=== PATIENT | female | born 1965 | race African-American/Black ===

== ENCOUNTER 2019-07-27 16:24 | Emergency (ER) | payer OTHER ==
[2019-07-27 17:13] VITALS: BMI 24.5
--- NOTE | 2019-07-27 17:13 | PDOC ---
Rapid Medical Evaluation Time Seen by Provider: 07/27/19 17:10 Medical Evaluation: 07/27/19 17:10 CC: "I was about to pass out."; Now with DRISCOLL and "my heart is beating fast." Pt refused evaluation until after using toilet. PE: No focal findings Orders: ekg, labs, urine Patient will proceed to ED for further evaluation. 07/27/19 17:13 Discharge Disposition - Diagnosis Pre-syncope - Referrals - Patient Instructions - Post Discharge Activity
--- NOTE | 2019-07-27 17:35 | PDOC ---
History of Present Illness - General Chief Complaint: Headache Stated Complaint: DIZZY Time Seen by Provider: 07/27/19 17:10 - History of Present Illness Initial Comments: The pt is a 54F w/ a history of EtOH abuse and s/p gastric sleeve (2013) who presents for evaluation of 1 day of palpitations and 2 days of insomnia. The pt reports recently being treated for influenza and returning to work yesterday. She notes insomnia for 2 days which she tried taking Advil PM w/ no relief. She also reports b/l, gradual onset head throbbing, that was not sudden onset, and is not exacerbated or alleviated by anything she can identify. She reports epigastric abdominal pain, that is burning, intermittent, worsened with EtOH use, and alleviated by abstaining from EtOH. She denies fevers/chills, chest pain, vision changes, trouble breathing, N/V/C, dysuria, hematuria, or changes in sensation/strength. PMH: Denies PSH: Gastric sleeve (2013), R ankle surgery Meds: Denies SH: +tobacco, daily EtOH (3-4 beers), denies illicit drug use 07/27/19 17:59 Past History - Past Medical History Allergies/Adverse Reactions: Allergies Allergy/AdvReac Type Severity Reaction Status Date / Time No Known Allergies Allergy Verified 07/27/19 17:13 COPD: No - Surgical History Abdominal Surgery: Yes (SLEEVE) - Psycho Social/Smoking Cessation Hx Smoking History: Current every day smoker Number of Cigarettes Smoked Daily: 10 Information on smoking cessation initiated: No Hx Alcohol Use: Yes Drug/Substance Use Hx: No Review of Systems - Review of Systems Able to Perform ROS?: Yes Comments:: GENERAL/CONSTITUTIONAL: No fever or chills. No weakness HEAD, EYES, EARS, NOSE AND THROAT: No change in vision. No change in hearing. No sore throat CARDIOVASCULAR: No chest pain or shortness of breath RESPIRATORY: Denies cough, hemoptysis GASTROINTESTINAL: No nausea, vomiting, constipation GENITOURINARY: No dysuria, frequency, or change in urination MUSCULOSKELETAL: No joint or muscle swelling or pain. No neck or back pain SKIN: No rash NEUROLOGIC: No headache, vertigo, loss of consciousness, or change in strength/ sensation ENDOCRINE: No increased thirst. No abnormal weight change HEMATOLOGIC/LYMPHATIC: No anemia, easy bleeding, or history of blood clots ALLERGIC/IMMUNOLOGIC: No hives or skin allergy 07/27/19 17:34 Is the patient limited Albanian proficient: No *Physical Exam - Vital Signs Last Vital Signs Temp Pulse Resp BP Pulse Ox 98.8 F 91 H 16 139/88 100 07/27/19 16:49 07/27/19 16:49 07/27/19 16:49 07/27/19 16:49 07/27/19 16:49 - Physical Exam GENERAL: Awake, alert, and oriented to person/place/time, in no acute distress HEAD: No signs of trauma, normocephalic, atraumatic EYES: PERRLA, EOMI, sclera anicteric, conjunctiva clear ENT: Hearing grossly normal, nares patent, oropharynx clear without exudates. Moist mucosa LUNGS: No distress, speaks in full sentences, clear to auscultation bilaterally HEART: Regular rate and rhythm, normal S1 and S2, no murmurs appreciated, peripheral pulses normal and equal bilaterally ABDOMEN: Soft, mild epigastric TTP w/o rebound or guarding, normoactive bowel sounds EXTREMITIES: Normal inspection, Normal range of motion, no edema. No clubbing or cyanosis NEUROLOGICAL: Cranial nerves II through XII grossly intact. Normal speech, normal gait, no focal sensorimotor deficits SKIN: Warm, Dry 07/27/19 17:35 ED Treatment Course - LABORATORY CBC & Chemistry Diagram: 07/27/19 17:20 07/27/19 17:20 Medical Decision Making - Medical Decision Making The pt is a 54F w/ a history of EtOH abuse and s/p gastric sleeve (2013) who presents for palpitations and insomnia who also complains of head throbbing and epigastric pain ED Course CMP, CBC, Cardiac profile, TSH, UA, UCx ECG CXR Ofirmev, Benadryl, Reglan, Pepcid ECG w/ NSR; HR 77; QTc 430; no axis deviation; no PATRICIA; no TWI 07/27/19 18:03 No leukocytosis No anemia Lytes unremarkable No JOHAN Slight bump in LFTs consistent with EtOH abuse TSH wnl CXR w/o acute pathology 07/27/19 18:58 Pt receiving Ofirmev now Pt feels improved at this time Tolerating PO in ED Plan for D/C w/ PCP f/u Discharge instructions and return precautions given Patient in agreement and verbalized understanding Dispo: Home 07/27/19 20:17 Discharge - Discharge Information Problems reviewed: Yes Clinical Impression/Diagnosis: Palpitations Insomnia Qualifiers: Insomnia type: unspecified Qualified Code(s): G47.00 - Insomnia, unspecified Condition: Stable - Admission No - Follow up/Referral Referrals: [facility] [place] [facility] [place] [facility] [place] [Provider Group] - Patient Discharge Instructions Patient Printed Discharge Instructions: DI for Insomnia, DI for Palpitations Additional Instructions: You were seen in the Emergency Department for evaluation of palpitations. Your labs and imaging were unremarkable. Review the handouts provided at discharge. Follow up with your primary care provider. For pain you may take Tylenol 650mg every 6 hours and Ibuprofen 600mg every 6-8 hours, alternating them each time. Return to the Emergency Department if you develop fevers, chest pain, trouble breathing, worsening pain, change in sensation, worsening symptoms, or any new/ concerning symptoms - Post Discharge Activity Work/Back to School Note: Back to Work
[2019-07-27 17:43] LABS: BASO % 0.8 % (0-2.0); HEMATOCRIT 35.9 % (32.4-45.2); HEMOGLOBIN 11.7 GM/dL (10.7-15.3); LYMPH % 30.6 % (8-40); MCH 30.3 pg (25.7-33.7); MCHC 32.7 g/dl (32.0-36.0); MEAN CELL VOLUME 92.6 fl (80-96); MEAN PLT VOLUME 7.7 fl (7.5-11.1); MONO % 12.7 % (3.8-10.2); NEUT % 54.9 % (42.8-82.8); PLATELET COUNT 150 K/MM3 (134-434); RBC 3.87 M/mm3 (3.60-5.2); RDW 13.7 % (11.6-15.6); WHITE BLOOD COUNT 5.9 K/mm3 (4.0-10.0)
[2019-07-27] MEDS ORDERED: METOCLOPRAMIDE HCL INJECTION 10 MG/2 ML VIAL IVPB ONE (17:53)
[2019-07-27] MEDS ORDERED: SODIUM CHLORIDE 0.9% 500 ML INFUS.BAG IV ONE (17:53)
[2019-07-27] MEDS ORDERED: ACETAMINOPHEN 1000 MG/100 ML VIAL (NON FORMULARY) IVPB ONE (17:53)
[2019-07-27] MEDS ORDERED: FAMOTIDINE 20 MG/50 ML IVPB 20 MG/50 ML MG IVPB ONE ×2 (17:58→18:43)
--- NOTE | 2019-07-27 17:59 | PDOC ---
Attending Attestation - Resident Resident Name: Ad Solis - ED Attending Attestation I have performed the following: I have examined & evaluated the patient, The case was reviewed & discussed with the resident, I agree w/resident's findings & plan, Exceptions are as noted - HPI HPI: 07/27/19 17:58 54-year-old female who states she recovered from the flu and return back to work yesterday presents because of complaints of insomnia and palpitations. Upon arrival her heartbeat is regular rate and rhythm in the 70s She also drinks 2-3 beers a day and has some complaint of epigastric pain after drinking. - Physicial Exam PE: 07/27/19 17:59 54-year-old female who is well-nourished and well-developed Head normocephalic atraumatic Neck is supple Lungs clear to auscultation bilaterally CVS regular rate rhythm S1-S2 Abdomen mild epigastric pain to deep palpation no rebound or guarding Skin warm and dry Neuro alert and oriented x3, ambulatory, no gross focal neuro deficits - Medical Decision Making 07/27/19 18:58 54-year-old female who recovered from the flu within the past few weeks presented because of palpitations weakness and epigastric pain that was associated with her alcohol intake EKG is normal sinus rhythm with no signs of any ischemia, troponin is negative Labs are reviewed there was some very mild bump in some of her LFTs otherwise her labs are unremarkable CBC shows no leukocytosis or significant anemia Patient has essentially benign exam and after her IV fluids and medications will be discharged home
[2019-07-27 18:21] LABS: ALBUMIN 4.1 g/dl (3.4-5.0); BILIRUBIN,TOTAL 0.7 mg/dL (0.2-1); BLOOD UREA NITROGEN 17.5 mg/dL (7-18); CALCIUM 9.2 mg/dL (8.5-10.1); CREATININE 0.8 mg/dL (0.55-1.3); MAGNESIUM 2.2 mg/dL (1.8-2.4); POTASSIUM 4.1 mmol/L (3.5-5.1); TOT PROT 8.3 g/dl (6.4-8.2)
[2019-07-27] MEDS ORDERED: METOCLOPRAMIDE HCL INJECTION 10 MG/2 ML VIAL ONE (18:42)
[2019-07-27] MEDS ORDERED: ACETAMINOPHEN INJECTION 100 ML IVPB ONE (18:42)
[2019-07-27 21:10] VITALS: BP 149/87; PULSE 85; TEMP 98.1
--- NOTE | 2019-07-28 08:44 | EKG ---
Test Reason : Blood Pressure : / mmHG Vent. Rate : 077 BPM Atrial Rate : 077 BPM P-R Int : 152 ms QRS Dur : 080 ms QT Int : 380 ms P-R-T Axes : 058 041 035 degrees QTc Int : 430 ms NORMAL SINUS RHYTHM POSSIBLE LEFT ATRIAL ENLARGEMENT BORDERLINE ECG NO PREVIOUS ECGS AVAILABLE Confirmed by MD KRISTINE, SUNITA ([id number]) on 07/28/2019 8:44:14 AM Referred By: Confirmed By:SUNITA CARMONA MD
== END 2019-07-27 21:18 | disposition home or self-care (01) ==
LOC: JER 16:24
PROC: 3E033GC Introduction of Other Therapeutic Substance into Peripheral Vein, Percutaneous Approach (ICD-10-PCS; principal; 2019-07-27)
PROC: 3E033NZ Introduction of Analgesics, Hypnotics, Sedatives into Peripheral Vein, Percutaneous Approach (ICD-10-PCS; 2019-07-27)
PROC: 3E033GC Introduction of Other Therapeutic Substance into Peripheral Vein, Percutaneous Approach (ICD-10-PCS; 2019-07-27)
PROC: 3E033GC Introduction of Other Therapeutic Substance into Peripheral Vein, Percutaneous Approach (ICD-10-PCS; 2019-07-27)
DX: R00.2 Palpitations (principal); G47.00 Insomnia, unspecified; R10.13 Epigastric pain; F10.10 Alcohol abuse, uncomplicated; F17.210 Nicotine dependence, cigarettes, uncomplicated; Z98.84 Bariatric surgery status
CPT/HCPCS: 36415; 71046-TC-FY; 80053; 82550; 82553; 83735; 84443; 84484; 85025; 93005; 93010; 96365; 96375; 99285-25; J0131